=== PATIENT | male | born 1935 | race Caucasian/White ===

== ENCOUNTER 2017-08-01 09:42 | Emergency (ER) | payer OTHER ==
[2017-08-01] MEDS ORDERED: NA CHLORIDE 0.9% 1,000 ML ONE (10:15)
[2017-08-01 10:20] LABS: Absolute Lymphocytes (CBC) 1.8 K/uL (0.7-4.9); Absolute Monocytes 0.4 K/uL (0.1-1.3); Basophils % 0.5 % (0-1.3); Eosinophils % 1.8 % (0-4.4); Hematocrit 43.4 % (39.6-49.0); Lymphocytes % 28.7 % (15.3-44.8); MCH 31.5 pg (27.0-35.0); MCV 95.1 fL (80-100); MPV 11.1 fL (7.6-11.3); Monocytes % 6.8 % (3.3-12.3); Protime INR 1.06; RBC Red Blood Cell Count 4.56 M/uL (4.33-5.43)
[2017-08-01 10:34] LABS: Magnesium 1.7 mg/dL (1.8-2.5)
--- NOTE | 2017-08-01 10:40 | RAD REPORT ---
EXAM DESCRIPTION: RAD - Chest Single View - 08/01/2017 10:35 am CLINICAL HISTORY: Hypertension, chest pain. COMPARISON: 01/08/2014, 05/28/2010 FINDINGS: Portable technique limits examination quality. The lungs are grossly clear. The heart is normal in size. No displaced fractures.Aortic atheroscleros is. IMPRESSION: No acute intrathoracic process suspected.
--- NOTE | 2017-08-01 12:10 | EKG ---
Test Date: 2017-08-01 Test Time: 10:07:55 Emergency Department Nurse: IRVING MEASUREMENT RESULTS: Intervals: Rate: 58 MA: 178 QRSD: 88 QT: 424 QTc: 416 [place]: P: 42 MA: 178 QRS: 5 T: 28 INTERPRETIVE STATEMENTS: Sinus bradycardia Otherwise normal ECG Compared to ECG 05/27/2010 11:33:11 Sinus tachycardia no longer present Electronically Signed On 08-01-17 12:09:31 CDT by Jamir Yanes
[2017-08-01 13:20] LABS: Urine Blood NEGATIVE (NEG); Urine Glucose NEGATIVE (NEG); Urine Protein NEGATIVE (NEG)
--- NOTE | 2017-08-01 14:04 | EDPHYS ---
Physician Documentation [facility] Name: Yunior Dale Age: 82 yrs Sex: Male : 1935 Arrival Date: 08/01/2017 Time: 09:44 Bed 19 Private MD: ED Physician Hemanth Hackett HPI: 08/01 10:02 This 82 yrs old Male presents to ER via EMS with complaints of Dizziness, ps1 Nausea/Vomiting. 10:02 The patient presents with feeling faint, lightheadedness, feeling off balance. Onset: ps1 The symptoms/episode began/occurred just prior to arrival. Context: occurred at home, occurred while the patient was standing, at si nk. Modifying factors: The symptoms are alleviated by sitting down. Associated signs and symptoms: Pertinent positives: near-syncope, Pertinent negatives: chest pain, diaphoresis, focal weakness, headache. Severity of symptoms: At their worst the symptoms were moderate in the emergency department the symptoms have resolved. Patient's baseline: Neuro: alert and fully oriented, Motor: no deficits, Ambulation: walks without assistance. Historical: - Allergies: 09:47 No Known Allergies; aj - Home Meds: 09:47 losartan Oral once daily [Active]; aj - PMHx: 09:47 Hypertension; aj - PSHx: 09:47 Hernia repair; aj - Immunization history:: Adult Immunizations up to date. - Social history:: Smoking status: Patient/guardian denies using tobacco. ROS: 10:02 Constitutional: Negative for fever, chills, and weight loss, Eyes: Negative for injury, ps1 pain, redness, and discharge, Neck: Negative for injury, pain, and swelling, Cardiovascular: Negative for chest pain, palpitations, and edema, Respiratory: Negative for shortness of breath, cough, wheezing, and pleuritic chest pain, Abdomen/GI: Negative for abdominal pain, nausea, vomiting, diarrhea, and constipation, : Negative for injury, bleeding, discharge, and swelling, MS/Extremity: Negative for injury and deformity. 10:02 Psych: Negative for depression, anxiety, suicide ideation, homicidal ideation, and hallucinations. 10:02 Neuro: Positive for near syncope, Negative for seizure activity, speech changes, visual changes, weakness. Exam: 10:02 Constitutional: This is a well developed, well nourished patient who is awake, alert, ps1 and in no acute distress. Head/Face: Normocephalic, atraumatic. Eyes: Pupils equal round and reactive to light, extra-ocular motions intact. Lids and lashes normal. Conjunctiva and sclera are non-icteric and not injected. Chest/axilla: Normal chest wall appearance and motion. Nontender with no deformity. No lesions are appreciated. Cardiovascular: Regular rate and rhythm. No gallops, murmurs, or rubs. Normal PMI, no JVD. No pulse deficits. Respiratory: Lungs have equal breath sounds bilaterally, clear to auscultation and percussion. No rales, rhonchi or wheezes noted. No increased work of breathing, no retractions or nasal flaring. Abdomen/GI: Soft, non-tender, with normal bowel sounds. No distension or tympany. No guarding or rebound. No evidence of tenderness throughout. Skin: Warm, dry with normal turgor. Normal color with no rashes, no lesions, and no evidence of cellulitis. MS/ Extremity: Pulses equal, no cyanosis. Neurovascular intact. Full, normal range of motion. Neuro: Awake and alert, GCS 15, oriented to person, place, time, and situation. Cranial nerves II-XII grossly intact. Sensory grossly intact. 14:05 ECG was reviewed by the Attending Physician. ps1 Vital Signs: 09:47 BP 170 / 71; Pulse 61; Resp 16; Temp 97.7; Pulse Ox 98% on R/A; Weight 68.04 kg; Height aj 5 ft. 5 in. (165.10 cm); Pain 0/10; 11:03 BP 144 / 85 Supine; Pulse 94; aj 11:05 BP 165 / 84 Sitting; Pulse 84; aj 11:07 BP 140 / 83 Standing; Pulse 87; aj 12:05 BP 146 / 74; Pulse 72; Resp 16; Pulse Ox 96% on R/A; dh3 13:34 BP 137 / 69; Pulse 76; Resp 18; Pulse Ox 98% on R/A; aj 14:17 BP 127 / 76; Pulse 86; Resp 20; Pulse Ox 99% on R/A; aj 09:47 Body Mass Index 24.96 (68.04 kg, 165.10 cm) aj MDM: 10:06 Patient medically screened. ps1 14:05 Data reviewed: vital signs, nurses notes, lab test result(s), EKG, radiologic studies. ps1 ED course: Pt symptoms completely resolved. VSS. Stable for discharge. . 08/01 09:55 Order name: CBC with Diff ps1 08/01 09:55 Order name: Lipase; Complete Time: 10:46 ps1 08/01 09:55 Order name: Magnesium; Complete Time: 10:46 ps1 08/01 09:55 Order name: Protime (+inr); Complete Time: 10:26 ps1 08/01 09:55 Order name: Troponin (emerg Dept Use Only); Complete Time: 10:46 ps1 08/01 09:55 Order name: CBC with Automated Diff; Complete Time: 10:26 EDMS 08/01 09:55 Order name: EKG; Complete Time: 09:55 ps1 08/01 09:55 Order name: Cardiac monitoring; Complete Time: 10:08 ps1 08/01 09:55 Order name: EKG - Nurse/Tech; Complete Time: 10:09 ps1 08/01 09:55 Order name: IV Saline Lock; Complete Time: 10: ps1 08/01 09:55 Order name: CXR XRAY; Complete Time: 10:46 ps1 08/01 12:17 Order name: Urine Dipstick--Ancillary (enter results); Complete Time: 13:25 bd 08/01 09:55 Order name: Labs collected and sent; Complete Time: 10:09 ps1 08/01 09:55 Order name: NPO; Complete Time: 10:09 ps1 08/01 09:55 Order name: O2 Per Protocol; Complete Time: 10:09 ps1 08/01 09:55 Order name: O2 Sat Monitoring; Complete Time: 10:09 ps1 08/01 09:55 Order name: Urine Dipstick-Ancillary (obtain specimen); Complete Time: 12:16 ps1 08/01 09:55 Order name: Orthostatic Blood Pressure; Complete Time: 11:14 ps1 EC:07 Rate is 58 beats/min. Rhythm is regular. QRS [place] is Normal. [place] interval is normal. QRS ps1 interval is normal. QT interval is normal. No Q waves. T waves are Normal. No ST changes noted. Clinical impression: Sinus bradycardia. Interpreted by me. Administered Medications: 10:19 Drug: NS 0.9% 1000 ml Route: IV; Rate: 1 bolus; Site: left antecubital; aj 12:45 Follow up: Response: No adverse reaction; IV Status: Completed infusion; IV Intake: aj 1000ml Disposition: 08/01/17 14:04 Discharged to Home. Impression: Nausea, Near Syncope.. - Condition is Stable. - Discharge Instructions: Nausea, Adult, Near-Syncope, [id number]. - Medication Reconciliation Form, Thank You Letter, Antibiotic Education, Prescription Opioid Use form. - Follow up: Private Physician; When: As needed; Reason: Further diagnostic work-up, Recheck today's complaints, Re-evaluation by your physician. Follow up: Emergency Department; When: As needed; Reason: Worsening of condition. - Problem is new. - Symptoms are resolved. Signatures: Dispatcher [employer] Norah Andersen RN RN aj Singer, Phillip, MD MD ps1
--- NOTE | 2017-08-01 14:04 | ER ---
Nurse's Notes [facility] Name: Yunior Dale Age: 82 yrs Sex: Male : 1935 Arrival Date: 08/01/2017 Time: 09:44 Bed 19 Private MD: Diagnosis: Nausea;Near Syncope. Presentation: 08/01 09:44 Presenting complaint: Patient states: Reports N/V X 1 episode with dizziness when aj moving or turning head that started just [employer]. Given Zofran 4 mg IV by EMS [employer]. Transition of care: patient was not received from another setting of care. Onset of symptoms was August 01, 2017. Care prior to arrival: Medication(s) given: zofran 4 mg, IV initiated. 20 GA, in the left antecubital area, Glucose check: 115. 09:44 Method Of Arrival: EMS: [facility] 09:44 Acuity: AMY 3 aj Triage Assessment: 09:47 General: Appears in no apparent distress. comfortable, Behavior is calm, cooperative, aj appropriate for age. Pain: Denies pain. Neuro: Level of Consciousness is awake, alert, obeys commands, Oriented to person, place, time, situation. Respiratory: Airway is patent Respiratory effort is even, unlabored, Respiratory pattern is regular, symmetrical. GI: Reports nausea, vomiting. Derm: Skin is intact, is healthy with good turgor, Skin is pink, warm \T\ dry. normal. Historical: - Allergies: 09:47 No Known Allergies; aj - Home Meds: 09:47 losartan Oral once daily [Active]; aj - PMHx: 09:47 Hypertension; aj - PSHx: 09:47 Hernia repair; aj - Immunization history:: Adult Immunizations up to date. - Social history:: Smoking status: Patient/guardian denies using tobacco. Screenin:13 Abuse screen: Denies threats or abuse. Denies injuries from another. Nutritional aj screening: No deficits noted. Tuberculosis screening: No symptoms or risk factors identified. Fall Risk None identified. Assessment: 11:10 Reassessment: Patient appears in no apparent distress at this time. Patient and/or aj family updated on plan of care and expected duration. Pain level reassessed. Patient is alert, oriented x 3, equal unlabored respirations, skin warm/dry/pink. See triage Patient states feeling better. Patient states symptoms have improved. 13:35 Reassessment: Patient appears in no apparent distress at this time. Patient and/or aj family updated on plan of care and expected duration. Pain level reassessed. Patient is alert, oriented x 3, equal unlabored respirations, skin warm/dry/pink. Patient is resting in bed in NAD. Appears comfortable at this time Patient states feeling better. Patient states symptoms have improved. Vital Signs: 09:47 BP 170 / 71; Pulse 61; Resp 16; Temp 97.7; Pulse Ox 98% on R/A; Weight 68.04 kg; Height aj 5 ft. 5 in. (165.10 cm); Pain 0/10; 11:03 BP 144 / 85 Supine; Pulse 94; aj 11:05 BP 165 / 84 Sitting; Pulse 84; aj 11:07 BP 140 / 83 Standing; Pulse 87; aj 12:05 BP 146 / 74; Pulse 72; Resp 16; Pulse Ox 96% on R/A; dh3 13:34 BP 137 / 69; Pulse 76; Resp 18; Pulse Ox 98% on R/A; aj 14:17 BP 127 / 76; Pulse 86; Resp 20; Pulse Ox 99% on R/A; aj 09:47 Body Mass Index 24.96 (68.04 kg, 165.10 cm) aj ED Course: 09:44 Patient arrived in ED. aj 09:46 Hemanth Hackett MD is Attending Physician. ps1 09:46 Triage completed. aj 09:47 Arm band placed on right wrist. Patient placed in an exam room, on a stretcher, on bus monitor, on pulse oximetry. 10:08 Norah Hill, RN is Primary Nurse. aj 10:24 EKG done, by desktop technician. reviewed by Hemanth Hackett MD. tc 10:28 CXR XRAY In Process Unspecified. EDMS 10:51 X-ray completed. Portable x-ray completed in exam room. Patient tolerated procedure ag1 well. 11:13 Patient has correct armband on for positive identification. aj 12:14 Urine collected: urinal, clear. dh3 12:45 Urine Dipstick--Ancillary (enter results) Sent. aj 12:53 CBC with Diff Sent. bd 14:17 No provider procedures requiring assistance completed. IV discontinued, intact. aj Administered Medications: 10:19 Drug: NS 0.9% 1000 ml Route: IV; Rate: 1 bolus; Site: left antecubital; aj 12:45 Follow up: Response: No adverse reaction; IV Status: Completed infusion; IV Intake: aj 1000ml Intake: 12:45 IV: 1000ml; Total: 1000ml. aj Outcome: 14:04 Discharge ordered by . ps1 14:17 Discharged to home ambulatory. aj 14:17 Condition: good 14:17 Discharge instructions given to patient, Instructed on discharge instructions, follow up and referral plans. Increase PO fluids Demonstrated understanding of instructions, follow-up care. 14:27 Patient left the ED. aj Signatures: Dispatcher [employer] EDMS Za Singh Amanda, RN RN aj Josi Rudolph, management liaison EKG Elenita Mcgarry 1 Elva Haider 3 Hemanth Hackett MD MD ps1
== END 2017-08-01 14:27 | disposition home or self-care (01) ==
LOC: ER 09:42
DX: R55 Syncope and collapse (principal); I10 Essential (primary) hypertension
CPT/HCPCS: 36415; 71045; 81003; 83690; 83735; 84484; 85025; 85610; 93005; 96360; 96361; 99284; J7030

== ENCOUNTER 2018-03-28 00:24 | Emergency (ER) | payer OTHER ==
[2018-03-28] MEDS ORDERED: NA CHLORIDE 0.9% 1,000 ML ONE (01:39)
[2018-03-28 01:48] LABS: Protime INR 1.13
[2018-03-28 01:53] LABS: Absolute Monocytes 0.7 K/uL (0.1-1.3); Absolute Neutrophil 6.5 K/uL (1.8-8.0); Basophils % 0.8 % (0-1.3); Eosinophils % 1.4 % (0-4.4); Hematocrit 40.1 % (39.6-49.0); Lymphocytes % 21.3 % (15.3-44.8); MCH 31.9 pg (27.0-35.0); MCV 94.7 fL (80-100); RBC Red Blood Cell Count 4.23 M/uL (4.33-5.43)
[2018-03-28 02:07] LABS: ALT/SGPT 28 U/L (12-78); AST/SGOT 16 U/L (15-37); Albumin 3.3 g/dL (3.4-5.0); Alkaline Phosphatase 82 U/L (45-117); BUN Blood Urea Nitrogen 9 mg/dL (7-18); Bicarbonate 29 mmol/L (21-32); Bilirubin Direct 0.2 mg/dL (0-0.2); Bilirubin Total 0.5 mg/dL (0.2-1.0); Glucose Level 97 mg/dL (74-106); NT PRO-BNP 135 pg/mL (<450); Potassium 3.6 mmol/L (3.5-5.1); Protein, Total 7.1 g/dL (6.4-8.2); Sodium Level 138 mmol/L (136-145); Troponin (Emerg Dept Use Only) < 0.02 ng/mL (0.0-0.045)
--- NOTE | 2018-03-28 02:07 | EDPHYS ---
Physician Documentation [facility] Name: Yunior Dale Age: 83 yrs Sex: Male : 1935 Arrival Date: 03/28/2018 Time: 00:25 Bed 19 Private MD: ED Physician Gordy Concepcion HPI: 03/28 00:48 This 83 yrs old Male presents to ER via EMS with complaints of hiccups x 3 kav weeks. 00:48 The patient or guardian reports hiccups x 3 weeks. Onset: The symptoms/episode kav began/occurred acutely, 3 week(s) ago. Severity of symptoms: At their worst the symptoms were mild just prior to arrival, No hiccups noted since patient admitted to ED. The patient has not experienced similar symptoms in the past. The patient has not recently seen a physician. Historical: - Allergies: 00:35 No Known Allergies; ao - Home Meds: 00:35 losartan Oral once daily [Active]; ao - PMHx: 00:35 Hypertension; ao - PSHx: 00:35 None; ao - Immunization history:: Adult Immunizations up to date. - Social history:: Smoking status: Patient/guardian denies using tobacco, Patient/guardian denies using alcohol, street drugs. - Ebola Screening: : Patient negative for fever greater than or equal to 101.5 degrees Fahrenheit, and additional compatible Ebola Virus Disease symptoms Patient denies exposure to infectious person Patient denies travel to an Ebola-affected area in the 21 days before illness onset. - Family history:: not pertinent. - Hospitalizations: : No recent hospitalization is reported. ROS: 00:49 Constitutional: Negative for fever, chills, and weight loss, Eyes: Negative for injury, kav pain, redness, and discharge, ENT: Negative for injury, pain, and discharge, Neck: Negative for injury, pain, and swelling, Cardiovascular: Negative for chest pain, palpitations, and edema, Abdomen/GI: Negative for abdominal pain, nausea, vomiting, diarrhea, and constipation, Back: Negative for injury and pain, MS/Extremity: Negative for injury and deformity, Skin: Negative for injury, rash, and discoloration, Neuro: Negative for headache, weakness, numbness, tingling, and seizure, Psych: Negative for depression, anxiety, suicide ideation, homicidal ideation, and hallucinations, Allergy/Immunology: Negative for hives, rash, and allergies, Endocrine: Negative for neck swelling, polydipsia, polyuria, polyphagia, and marked weight changes, Hematologic/Lymphatic: Negative for swollen nodes, abnormal bleeding, and unusual bruising. 00:49 Respiratory: Positive for hiccups. 00:49 : Positive for testicular pain Exam: 00:49 Constitutional: This is a well developed, well nourished patient who is awake, alert, kav and in no acute distress. Head/Face: Normocephalic, atraumatic. Eyes: Pupils equal round and reactive to light, extra-ocular motions intact. Lids and lashes normal. Conjunctiva and sclera are non-icteric and not injected. Cornea within normal limits. Periorbital areas with no swelling, redness, or edema. ENT: Nares patent. No nasal discharge, no septal abnormalities noted. Tympanic membranes are normal and external auditory canals are clear. Oropharynx with no redness, swelling, or masses, exudates, or evidence of obstruction, uvula midline. Mucous membranes moist. Neck: Trachea midline, no thyromegaly or masses palpated, and no cervical lymphadenopathy. Supple, full range of motion without nuchal rigidity, or vertebral point tenderness. No Meningismus. Chest/axilla: Normal chest wall appearance and motion. Nontender with no deformity. No lesions are appreciated. Cardiovascular: Regular rate and rhythm with a normal S1 and S2. No gallops, murmurs, or rubs. Normal PMI, no JVD. No pulse deficits. Respiratory: Lungs have equal breath sounds bilaterally, clear to auscultation and percussion. No rales, rhonchi or wheezes noted. No increased work of breathing, no retractions or nasal flaring. Abdomen/GI: Soft, non-tender, with normal bowel sounds. No distension or tympany. No guarding or rebound. No evidence of tenderness throughout. Back: No spinal tenderness. No costovertebral tenderness. Full range of motion. Skin: Warm, dry with normal turgor. Normal color with no rashes, no lesions, and no evidence of cellulitis. MS/ Extremity: Pulses equal, no cyanosis. Neurovascular intact. Full, normal range of motion. Neuro: Awake and alert, GCS 15, oriented to person, place, time, and situation. Cranial nerves II-XII grossly intact. Motor strength 5/5 in all extremities. Sensory grossly intact. Cerebellar exam normal. Normal gait. Psych: Awake, alert, with orientation to person, place and time. Behavior, mood, and affect are within normal limits. 00:49 : Male external genitalia: tenderness, of the left testicle is noted, of the epididymis area. Vital Signs: 00:34 BP 177 / 109; Pulse 107; Resp 16; Temp 98.4(O); Pulse Ox 98% on R/A; Weight 68.04 kg; ao Height 5 ft. 6 in. (167.64 cm); Pain 4/10; 01:43 BP 177 / 112; Pulse 104; Resp 18; Pulse Ox 99% on R/A; ao 02:03 BP 155 / 79; Pulse 87; Resp 20; Pulse Ox 100% ; Pain 0/10; ao 02:54 BP 156 / 97; Pulse 86; Resp 16; Pulse Ox 100% ; Pain 0/10; ao 00:34 Body Mass Index 24.21 (68.04 kg, 167.64 cm) ao MDM: 00:32 Medical screening is not applicable. kav 00:49 Data reviewed: vital signs, nurses notes. kav 01:45 Awaiting: labs results. kav 02:05 Data reviewed: lab test result(s), radiologic studies, ultrasound. Counseling: I had a kav detailed discussion with the patient and/or guardian regarding: the historical points, exam findings, and any diagnostic results supporting the discharge/admit diagnosis, the presence of at least one elevated blood pressure reading (>120/80) during this emergency department visit, lab results, the need for outpatient follow up, to return to the emergency department if symptoms worsen or persist or if there are any questions or concerns that arise at home. 03/28 01:07 Order name: Basic Metabolic Panel; Complete Time: 02:09 kav 03/28 01:07 Order name: CBC with Diff; Complete Time: 01:55 kav 03/28 01:07 Order name: LFT's; Complete Time: 02:09 kav 03/28 01:07 Order name: Magnesium; Complete Time: 02:09 kav 03/28 01:07 Order name: NT PRO-BNP; Complete Time: 02:09 kav 03/28 01:07 Order name: PT-INR; Complete Time: 01:55 v 03/28 01:07 Order name: Troponin (emerg Dept Use Only); Complete Time: 02:09 v 03/28 01:07 Order name: XRAY Chest (1 view) 03/28 01:07 Order name: EKG; Complete Time: 01:08 v 03/28 01:07 Order name: Cardiac monitoring; Complete Time: 01:42 03/28 01:07 Order name: EKG - Nurse/Tech; Complete Time: 01:42 v 03/28 01:07 Order name: US Scrotum Testicles 03/28 02:12 Order name: Urine Dipstick--Ancillary (enter results) [facility] 03/28 01:07 Order name: IV Saline Lock; Complete Time: 01:42 03/28 01:07 Order name: Labs collected and sent; Complete Time: 01:42 v 03/28 01:07 Order name: O2 Per Protocol; Complete Time: :42 03/28 01:07 Order name: O2 Sat Monitoring; Complete Time: :42 03/28 01:07 Order name: Urine Dipstick-Ancillary (obtain specimen); Complete Time: 02:16 kav Administered Medications: 01:41 Drug: NS 0.9% 1000 ml Route: IV; Rate: 1000 ml; Site: right antecubital; ao 02:54 Follow up: IV Status: Completed infusion; IV Intake: 1000ml ao Disposition: 06:34 Co-signature as Attending Physician, Gordy Concepcion MD I agree with the assessment and [facility] plan of care. Disposition: 03/28/18 02:06 Discharged to Home. Impression: Hiccough, Epididymitis. - Condition is Stable. - Discharge Instructions: Epididymitis, Hiccups, Testicular Self-Exam. - Prescriptions for Levaquin 500 mg Oral Tablet - take 1 tablet by ORAL route once daily for 7 days; 7 tablet. - Medication Reconciliation Form, Thank You Letter, Antibiotic Education form. - Follow up: Private Physician; When: 2 - 3 days; Reason: If symptoms return, Recheck today's complaints, Continuance of care, Re-evaluation by your physician. - Problem is new. - Symptoms have improved. Signatures: Dispatcher [employer] Gordy Christian MD MD cha Vern, Katherine, CELL OPERATOR CELL OPERATOR Malcom Lopez, RN RN ao Corrections: (The following items were deleted from the chart) 03:23 02:06 03/28/2018 02:06 Discharged to Home. Impression: Hiccough; Epididymitis. ao Condition is Stable. Forms are Medication Reconciliation Form, Thank You Letter, Antibiotic Education, Prescription Opioid Use. Follow up: Private Physician; When: 2 - 3 days; Reason: If symptoms return, Recheck today's complaints, Continuance of care, Re-evaluation by your physician. Problem is new. Symptoms have improved. kav
--- NOTE | 2018-03-28 02:07 | ER ---
Nurse's Notes [facility] Name: Yunior Dale Age: 83 yrs Sex: Male : 1935 Arrival Date: 03/28/2018 Time: 00:25 Bed 19 Private MD: Diagnosis: Hiccough;Epididymitis Presentation: 03/28 00:31 Presenting complaint: EMS states: Patient has had hiccups for the past two week and is ao getting worst. Patient also complains of abdominal pain related to protruding hernia. Transition of care: patient was not received from another setting of care. Onset of symptoms is unknown. Risk Assessment: Do you want to hurt yourself or someone else? Patient reports no desire to harm self or others. Initial Sepsis Screen: Does the patient meet any 2 criteria? No. Patient's initial sepsis screen is negative. Does the patient have a suspected source of infection? No. Patient's initial sepsis screen is negative. Care prior to arrival: None. 00:31 Method Of Arrival: EMS: [facility] ao 00:31 Acuity: AMY 3 ao Historical: - Allergies: 00:35 No Known Allergies; ao - Home Meds: 00:35 losartan Oral once daily [Active]; ao - PMHx: 00:35 Hypertension; ao - PSHx: 00:35 None; ao - Immunization history:: Adult Immunizations up to date. - Social history:: Smoking status: Patient/guardian denies using tobacco, Patient/guardian denies using alcohol, street drugs. - Ebola Screening: : Patient negative for fever greater than or equal to 101.5 degrees Fahrenheit, and additional compatible Ebola Virus Disease symptoms Patient denies exposure to infectious person Patient denies travel to an Ebola-affected area in the 21 days before illness onset. - Family history:: not pertinent. - Hospitalizations: : No recent hospitalization is reported. Screenin:39 Abuse screen: Denies threats or abuse. Denies injuries from another. Nutritional ao screening: No deficits noted. Tuberculosis screening: No symptoms or risk factors identified. Fall Risk None identified. Assessment: 00:36 General: Appears in no apparent distress. comfortable, Behavior is calm, cooperative, ao appropriate for age. Pain: Complains of pain in pelvis. Neuro: Level of Consciousness is awake, alert, obeys commands, Oriented to person, place, time, situation, Appropriate for age Moves all extremities. Full function Speech is normal, Facial symmetry appears normal. Cardiovascular: Capillary refill < 3 seconds Patient's skin is warm and dry. Respiratory: Airway is patent Respiratory effort is even, unlabored, Respiratory pattern is regular, symmetrical. GI: Abdomen is non-distended. : No signs and/or symptoms were reported regarding the genitourinary system. : Reports Hernia. EENT: No signs and/or symptoms were reported regarding the EENT system. Derm: Skin is dry, Skin temperature is warm. Musculoskeletal: No signs and/or symptoms reported regarding the musculoskeletal system. Injury Description:. 01:43 Reassessment: Patient appears in no apparent distress at this time. Patient and/or ao family updated on plan of care and expected duration. Pain level reassessed. Monitoring VS. 02:20 Reassessment: Patient appears in no apparent distress at this time. Patient is for ao discharge. Patient has no way to go home. Will call supervisor vat house to arrange for transportation. 02:48 Reassessment: Called supervisor [facility] house and stated is ok to call a taxi cab to send ao patient home. Vital Signs: 00:34 BP 177 / 109; Pulse 107; Resp 16; Temp 98.4(O); Pulse Ox 98% on R/A; Weight 68.04 kg; ao Height 5 ft. 6 in. (167.64 cm); Pain 4/10; 01:43 BP 177 / 112; Pulse 104; Resp 18; Pulse Ox 99% on R/A; ao 02:03 BP 155 / 79; Pulse 87; Resp 20; Pulse Ox 100% ; Pain 0/10; ao 02:54 BP 156 / 97; Pulse 86; Resp 16; Pulse Ox 100% ; Pain 0/10; ao 00:34 Body Mass Index 24.21 (68.04 kg, 167.64 cm) ao ED Course: 00:25 Patient arrived in ED. al2 00:31 Malcom Brown, DENTON is Primary Nurse. ao 00:32 Rebecca Higginbotham FNP is PHCP. kav 00:32 Gordy Concepcion MD is Attending Physician. kav 00:34 Triage completed. ao 00:36 Arm band placed on right wrist. Patient placed in an exam room, on a stretcher, in a ao wheelchair, Patient notified of wait time. 00:39 Patient has correct armband on for positive identification. Pulse ox on. NIBP on. ao 01:35 Inserted saline lock: 20 gauge in right antecubital area, using aseptic technique. ao Blood collected. 01:48 XRAY Chest (1 view) In Process Unspecified. EDMS 01:56 US Scrotum Testicles In Process Unspecified. EDMS 02:51 No provider procedures requiring assistance completed. IV discontinued, intact, ao bleeding controlled, No redness/swelling at site. Pressure dressing applied. Administered Medications: 01:41 Drug: NS 0.9% 1000 ml Route: IV; Rate: 1000 ml; Site: right antecubital; ao 02:54 Follow up: IV Status: Completed infusion; IV Intake: 1000ml ao Intake: 02:00 IV: 1000ml; Total: 1000ml. ao 02:54 IV: 1000ml; Total: 2000ml. ao Outcome: 02:06 Discharge ordered by . yao 02:51 Discharged to home ambulatory. ao 02:51 Condition: stable 02:51 Discharge instructions given to patient, Instructed on discharge instructions, follow up and referral plans. Demonstrated understanding of instructions, follow-up care, medications, Prescriptions given X 2. 03:23 Patient left the ED. ao Signatures: Dispatcher [employer] EDRebecca Adamson, LOCKSTITCH COLLAR SETTER Malcom Lynch, RN RN Sona Ford
[2018-03-28 03:23] LABS: Urine Blood 1+ (NEG); Urine Glucose NEGATIVE (NEG); Urine Protein NEGATIVE (NEG); Urine Specific Gravity 1.015 (1.005-1.030)
--- NOTE | 2018-03-28 05:45 | EKG ---
Test Date: 2018-03-28 Test Time: 01:26:01 Transitional Nurse: PAT MEASUREMENT RESULTS: Intervals: Rate: 91 AL: 164 QRSD: 78 QT: 340 QTc: 418 [place]: P: 63 AL: 164 QRS: 61 T: 58 INTERPRETIVE STATEMENTS: Normal sinus rhythm Normal ECG Compared to ECG 08/01/2017 10:07:55 Sinus bradycardia no longer present Electronically Signed On 03-28-18 05:44:51 OXYACETYLENE CUTTER by Jamir Yanes
--- NOTE | 2018-03-28 08:25 | RAD REPORT ---
EXAM DESCRIPTION: Delia Single View03/28/2018 1:48 am CLINICAL HISTORY: Hypertension/cups COMPARISON: July 2017 FINDINGS: The lungs appear clear of acute infiltrate. The heart is normal size. Eventration right h emidiaphragm is unchanged. A 9 millimeter nodular opacity overlies the left base IMPRESSION: A 9 millimeter nodular opacity which overlies left base may represent a nipple shadow or pulmonary nodule. Follow-up chest x-ray with left nipple marker in 3 months recommended for re-evalu ation
--- NOTE | 2018-03-28 08:28 | RAD REPORT ---
EXAM DESCRIPTION: US - Scrotum Testicles - 03/28/2018 1:57 am CLINICAL HISTORY: Scrotal pain COMPARISON: None FINDINGS: Right testicle measures 4 x 2.1 x 1.8 centimeters. Echotexture is homogeneous. Normal bloo d flow. 7 millimeter right spermatocele Left testicle measures 3.3 x 2.6 x 2.6 centimeters. Echotexture is homogeneous. Normal blood flow. In creased blood flow is present within the left epididymis. 7 millimeter spermatocele Moderate hydroceles IMPRESSION: Left epididymitis
== END 2018-03-28 03:23 | disposition home or self-care (01) ==
LOC: ER 00:24
DX: N45.1 Epididymitis (principal); I10 Essential (primary) hypertension
CPT/HCPCS: 36415; 71045; 76870; 80048; 80076; 81003; 83735; 83880; 84484; 85025; 85610; 93005; 96360; 99284; J7030